=== PATIENT | male | born 1955 | race Caucasian/White ===

== ENCOUNTER 2018-05-01 13:40 | Emergency (ER) | payer OTHER ==
[~2018-05-01] VITALS: Ht 180.3 cm; Wt 140.9 kg
[2018-05-01 13:42] VITALS: TEMP 98.5
[2018-05-01] MEDS ORDERED: GLUCOPHAGE1000 MG PO (13:57)
[2018-05-01] MEDS ORDERED: AMARYL 2MG T2 MG/TAB PO (13:57)
[2018-05-01] MEDS ORDERED: PRINZIDE 12.5 M1 TA1 PO (13:58)
[2018-05-01] MEDS ORDERED: MULTI VITAMINS1 TAB PO (13:58)
[2018-05-01] MEDS ORDERED: EPA FISH OIL1 SGL PO (13:59)
[2018-05-01 14:25] LABS: BASO # 0.1 (0.0-0.2); BASO % 0.7 % (0.0-2.0); EOS # 0.5 (0.0-0.7); EOS % 7.4 % (0-4.0); GRAN # 3.6 (1.4-6.5); GRAN % 52.3 % (42.2-75.2); LYMPH # 1.8 (1.2-3.4); LYMPH % 25.9 % (20.0-51.0); MEAN CELL VOLUME 100 fl (80.0-100.0); MEAN CORPUSCULAR HEMOGLOBIN 33 pg (27.0-31.0); MEAN CORPUSCULAR HGB CONC 33 g/dl (33.0-37.0); MEAN PLATELET VOLUME 10.6 fl (7.4-10.4); MONO # 0.9 (0.1-0.6); MONO % 13.1 % (1.7-9.3); PLATELET COUNT 201 K/mm3 (130-400)
[2018-05-01 14:39] LABS: ALANINE AMINOTRANSFERASE 29 U/L (21-72); ALBUMIN 3.6 gm/dL (3.5-5.0); ALKALINE PHOSPHATASE 86 U/L (50-136); ANION GAP 9 mmol/L (7-16); AST,SGOT 23 U/L (15-37); BILIRUBIN,TOTAL 0.7 mg/dL (0.0-1.0); BLOOD UREA NITROGEN 25 mg/dL (9-20); C-REACTIVE PROTEIN 7.6 mg/dL (0.0-0.9); CALCIUM 9.3 mg/dL (8.4-10.2); CARBON DIOXIDE 27 mmol/L (22-30); CHLORIDE 102 mmol/L (98-107); CREATININE, serum 0.91 mg/dL (0.66-1.25); GLUCOSE 83 mg/dL (74-106); POTASSIUM 4.1 mmol/L (3.4-5.0); SODIUM 137 mmol/L (137-145); TOTAL PROTEIN 7.3 gm/dL (6.4-8.2)
[2018-05-01 14:48] LABS: TROPONIN-I < 0.012 ng/mL (0.000-0.034)
[2018-05-01] MEDS ORDERED: LEVAQUIN 5500 MG/TA1 PO (16:43)
[2018-05-01 16:58] VITALS: BP 118/78; PULSE 88
== END 2018-05-01 17:00 | disposition home or self-care (01) ==
LOC: COL.ER 13:40
PROVIDERS: Family Medicine
DX: J90 Pleural effusion, not elsewhere classified (principal); J92.9 Pleural plaque without asbestos; E11.9 Type 2 diabetes mellitus without complications; Z79.84 Long term (current) use of oral hypoglycemic drugs
CPT/HCPCS: Q9967